=== PATIENT | female | born 1985 | race Caucasian/White ===

== ENCOUNTER → 2019-11-10 15:14 | Outpatient (CLI) | payer BC, SELFPAY ==
--- NOTE | ~2019-11-10 | CT_ITS ---
EXAMINATION: CT abdomen wo con DATE: 11/10/2019 15:32 INDICATION: Bilateral flank pain, history of kidney stones TECHNIQUE: Computed tomography (CT) of the abdomen was performed without intravenous contrast. The do se-length product (DLP) was 366.36 mGy-cm. Automated exposure control and iterative reconstruction te chnique were employed. COMPARISON: None FINDINGS: The lung bases are clear. The heart size is normal. The gallbladder is surgically absent. T he liver, spleen, pancreas, and adrenal glands are normal. Nonobstructing stones of the left kidney m easure up to 6 mm. There is a 2 mm nonobstructing stone of the right kidney lower pole. No stones are identified in the ureters. There is no hydronephrosis or hydroureter. No pathologically enlarged abd ominal nodes are identified. There is no free intraperitoneal gas or evidence of bowel obstruction. IMPRESSION: 1. Nonobstructing bilateral nephrolithiasis. Reviewed, dictated and finalized at location A.
== END ==
PROVIDERS: PCP Nurse Practitioner Family; Visit Provider Nurse Practitioner Family
DX: N20.0 Calculus of kidney (principal)
CPT/HCPCS: 74150

== ENCOUNTER → 2019-11-10 15:17 | Outpatient (CLI) | payer BC, SELFPAY ==
--- NOTE | ~2019-11-10 | US_ITS ---
EXAMINATION: US transvaginal EXAM DATE: 11/10/2019 15:53 INDICATION: Bilateral adnexal pain. Hysterectomy. TECHNIQUE: Pelvic transvaginal sonogram was performed. There are multiple grayscale and Doppler imag es available for interpretation. There is no prior study for comparison. FINDINGS: The vaginal cuff is unremarkable. There is no free pelvic fluid. Right adnexa: The ovary measures 1.4 x 1.3 x 1.9 cm and is morphologically normal. Ovarian vascular f low confirmed. Left adnexa: The ovary measures 2.4 x 1.7 x 1.8 cm and is morphologically normal. Ovarian vascular fl ow confirmed. IMPRESSION: 1. Unremarkable pelvic ultrasound exam. Reviewed, dictated and finalized at location B.
== END ==
PROVIDERS: PCP Nurse Practitioner Family; Visit Provider Nurse Practitioner
DX: R10.2 Pelvic and perineal pain (principal); Z90.710 Acquired absence of both cervix and uterus
CPT/HCPCS: 76830

== ENCOUNTER 2020-04-26 10:18 | Outpatient (CLI) | payer BC, SELFPAY ==
--- NOTE | ~2020-04-26 | MR_ITS ---
EXAMINATION: MR brain/brain stem wo con DATE: 04/26/2020 11:03 INDICATION: Headache TECHNIQUE: Magnetic resonance imaging (MRI) of the brain and brainstem was performed without intraven ous contrast. Sequences included sagittal and axial T1-weighted SE, axial diffusion-weighted FS SE, a xial T2*-weighted GRE, axial T2-weighted FLAIR, and axial T2-weighted FSE. Apparent diffusion coeffic ient (ADC) maps were created. COMPARISON: Head CT dated 07/24/2009 FINDINGS: There are no areas of restricted diffusion to suggest acute infarction. No intracranial hemorrhage or abnormal intracranial mass lesion. There are no intraparenchymal signal abnormalities seen on the ot her pulse sequences. The ventricles are symmetric and normal in size. There are no abnormal extra-axi al fluid collections. Flow voids are seen in the cerebral arteries on the T2-weighted sequences consi stent with their expected patency. Mild mucosal thickening the bilateral ethmoid and maxillary sinuse s. Visualized orbits and soft tissues are unremarkable. IMPRESSION: 1. Normal brain. No acute intracranial process. Reviewed, dictated and finalized at location A.
== END 2020-04-26 10:19 | disposition home or self-care (01) ==
PROVIDERS: PCP Nurse Practitioner Family; Visit Provider Psychiatry & Neurology Neurology
DX: R51.9 Headache, unspecified (principal)
CPT/HCPCS: 70551

== ENCOUNTER → 2021-01-11 03:13 | Outpatient (CLI) | payer BC, SELFPAY ==
[2021-01-11 20:27] LABS: SARS-CoV-2 RNA PCR Negative
== END ==
PROVIDERS: PCP Nurse Practitioner Family; Visit Provider Obstetrics & Gynecology
DX: Z01.812 Encounter for preprocedural laboratory examination (principal); Z20.822 Contact with and (suspected) exposure to COVID-19
CPT/HCPCS: C9803; U0003; U0005

== ENCOUNTER 2021-01-11 08:22 | Outpatient (CLI) | payer BC, SELFPAY | END 2021-01-11 08:23 | disposition home or self-care (01) | LOC: ANHSURGERY 08:25 | PROVIDERS: PCP Nurse Practitioner Family; Visit Provider Obstetrics & Gynecology | DX: Z01.812 Encounter for preprocedural laboratory examination (principal); N83.209 Unspecified ovarian cyst, unspecified side | CPT/HCPCS: 36415; 86850; 86900; 86901 ==

== ENCOUNTER 2021-01-14 03:17 | Day surgery (SDC) | payer BC, SELFPAY ==
[2021-01-04 14:52] VITALS: BMI 31.9
--- NOTE | 2021-01-04 14:59 | PC.NURSE ---
Report to the Outpatient Waiting Room, entrance under the green pavilion located off [facility], at time __1015_ on date 01-14-21. OR Time: ___121_. - You and your visitor will be asked a series of questions to screen for COVID 19 for your protection. - A mask is required within the hospital. - Only one visitor is allowed at this time. Patient visitors will be guided where to wait when not with patient. Preoperative COVID Testing Requirements: No COVID Test needed if: (proof is required; if not received patient will have Rapid Test prior to entry) Covid test 01-11-21 at 835am. - Patient has received COVID Vaccine at least 14 days prior to procedure date or - Patient has positive COVID test result within last 90 days of surgery date. COVID Test needed if above criteria is not met If not COVID vaccinated a COVID test must be conducted within 72 hours of surgery and patient is asked to isolate self from time of testing until procedure. You will go to the [employer] [facility] for your COVID testing. The [employer] [facility] is located at the corner of [address] [facility]. You will only be called if COVID results are positive and your surgeon may reschedule your elective surgery date. Patients may have clear liquids (water, carbonated beverages, clear teas, apple juice) until 3 hours prior to surgery with a maximum of 20 ounces. - No food from midnight until time of surgery - Infants may have breast milk until 4 hours before surgery, infant formula 6 hours prior to surgery. - Children will be allowed to drink immediately following surgery. If applicable, please bring a bottle or sippy cup to assist with drinking. Juice, water, soda, and popsicles are readily available. For infants on formula, please bring formula the day of surgery. Pacifiers are allowed. Take the following medications with a SIP of water the morning of surgery: Medications to discontinue per physician Date to take last dose Please no make-up, nail korean, hairspray, perfume, deodorant, or body powder the day of surgery. No jewelry (including any body piercings) or valuables the day of surgery, leave them at home. Please take a shower or bath the night before, or the morning of, surgery with an antibacterial soap. Wear comfortable, loose fitting clothing. Children are encouraged to wear pajamas. - Jewelry must be removed prior to entering the operating room. Rings and piercings that are not removed may be cut off. - The hospital will not accept responsibility for valuables. - Please leave all valuables, including medications, at home the day of surgery. If you are going home after surgery, a licensed chuck wagon driver must drive you home. - NO public transportation without another adult. - We recommend that an adult stay with you for 24 hours following discharge. - We also recommend that you do not drive, make important decision, drink alcoholic beverages, or take any drugs that were not prescribed by your health care provider for at least 24 hours after your discharge time. For Pediatric surgeries, we recommend two adults accompany the child home (only one inside the building at this time). Follow any additional instructions given to you from your surgeon. Telephone instructions given to ___Patient__and asked if any additional questions and then verbalized understanding. Patient advised to call surgeon office or pre surgery nurse liaison [phone] if any additional questions.
--- NOTE | 2021-01-11 13:00 | PM.IMHP ---
H&P: HPI History of Present Illness Date/Time: 01/11/21 13:00 This is a 35-year-old female 5 para 4 status post ablation followed by hysterectomy who is admitted for laparoscopy and left cystectomy with possible left salpingo-oophorectomy. This patient has had pain and discomfort and dyspareunia. Recent ultrasound showed the uterus to be absent both ovaries appeared within normal limits her pain has been life changing and she thus will undergo laparoscopy. Left ovarian cyst was seen and cystectomy was discussed as well as possible left salpingo-oophorectomy. Risks and benefits reviewed including but not exclusive of , aspiration, bleeding, transfusion, perforation injury to bowel, bladder, ureters, or other internal organs with need for open laparotomy. She received the A[employer] handout entitled laparoscopy. She had all questions answered. She asked to proceed Chief Complaint: Pelvic pain and left ovarian cyst Review of Systems Review of Systems: All systems reviewed & are unremarkable except as noted in HPI and below PMFSH Social History Social History Smoking status: Never smoker Alcohol intake: current Spiritual care concerns: No Meds Home Medications and Allergies Home Medications Medication Instructions Recorded Confirmed Type No Home Medications 01/04/21 01/04/21 History Allergies Allergy/AdvReac Type Severity Reaction Status Date / Time No Known Allergies Allergy Unverified 01/04/21 14:52 Exam Const: General: no acute distress Eyes: General: appearance normal, both eyes and all related structures Neck: Neck: supple and no JVD Thyroid: thyroid normal Resp: Effort & Inspection: normal respiratory effort Auscultation: clear to auscultation bilaterally Cardio: Rate: regular rate Rhythm: regular rhythm GI: Inspection: non-distended GI Palp: Yes Soft to palpation, No Tenderness to palpation present (GI) and No Guarding due to palpation present (GI) Auscultation: normal bowel sounds : External Female Exam: normal external appearance Speculum Exam - Vagina: normal appearance of the vagina Speculum Exam - Cervix: normal appearance of the cervix Bimanual exam- vagina & uterus: enlarged Bimanual Exam- Adnexa, other: tender Skin: General skin exam: no rashes or lesions noted Extrem: General: normal to inspection and no edema Psych: Mental Status: mental status grossly normal Affect: normal affect Assessment and Plan Additional Plan Impression: Left ovarian cyst and pelvic pain Plan: Laparoscopic left ovarian cystectomy
[2021-01-14] VITALS (13 sets, daily range): BP systolic 86–125; BP diastolic 48–87; PULSE 55–90; RESP 10–19; TEMP 36.1–36.4; O2SAT 91–100
--- NOTE | 2021-01-14 07:11 | WPDHPUPDATE1 ---
History and Physical Update Update Date/Time: 01/14/21 07:11 History and Physical has been reviewed, including an updated exam of the patient. There are NO changes in the patient's condition. Risks, benefits, and alternatives have been discussed and questions answered. Patient agrees to proceed with procedure.
--- NOTE | 2021-01-14 10:01 | P.PNAN_ITS ---
Anes - Initial Pre Proc Eval Procedure: Operation Date: 01/14/21 11:30 Proposed Procedures p Laparoscopy with Left Ovarian Cystectomy - Daniel Julian MD Date/Time: 01/14/21 10:01 Surgeon: Daniel Julian MD Pre Op Diagnosis: Lt Ovarian Cyst, Pelvic Pain Patient Data Age: 35 Gender: F Height: 1.6 m Weight: 81.8 kg Allergies Allergy/AdvReac Type Severity Reaction Status Date / Time No Known Allergies Allergy Unverified 01/04/21 14:52 Home Medications Medication Instructions Recorded Confirmed Type hydrocodone-acetaminophen 1 tablet PO Q4H PRN #30 tablet 01/14/21 Rx Patient hx anesthesia problems: none Family hx anesthesia problems: none Results Review: All pre-operative results and documents have been reviewed as part of the pre-operative evaluation. [facility] Past Medical History Medical History (Updated 01/14/21 @ 10:02 by Terence Persaud MD) Anxiety Depression Obesity Ovarian cyst Social History Social History Smoking status: Never smoker Alcohol intake: current Living arrangements: with family Spiritual care concerns: No Anes - Eval Final PreProcedure Day of Procedure 01/14/21 10:01 Patient weight: obese Heart: regular rate and rhythm Lungs: clear to auscultation and normal air movement Airway: Mallampati scale class II Neurological: alert and oriented Last oral intake: >/= 8 hours ASA classification: II Emergent: no Anesthetic plan: proceed Anesthesia type and monitoring: general ETT Results Review: All pre-operative results and documents have been reviewed as part of the pre-operative evaluation. Informed Consent: The patient's anesthetic plan and its attendant risks and b enefits were discussed with the patient/family/POA. Questions were solicited and answers provided to the satisfaction of the patient/family/POA.
[2021-01-14] MEDS: ACETAMINOPHEN 500 MG TABLET 1000 MG PO (10:04)
[2021-01-14] MEDS: LACTATED RINGERS 1,000 ML 30 ML IV CONT ×2 (10:10→12:58)
[2021-01-14] MEDS: KETOROLAC 15 MG/ML VIAL (*BKC) IV PUSH ×2 (11:23→14:05)
[2021-01-14] MEDS: SCOPOLAMINE 1.5 MG PATCH TRANSDERM (12:01)
--- NOTE | 2021-01-14 12:51 | W.PM.PROC2 ---
Procedure Note - Detailed Date of Procedure 01/14/21 Pre-op Diagnosis Lt Ovarian Cyst, Pelvic Pain Post-op Diagnosis same Procedure Performed Laparoscopy with left salpingo-oophorectomy lysis of adhesions Surgeon Daniel Julian MD Anesthesia general Indications This is a 35-year-old status post hysterectomy with complex left ovarian cyst pelvic pain Findings Absent uterus. Normal-appearing right ovary. The tubo-ovarian complex on the left with adhesions to the vaginal Description of Procedure The patient is prepped draped normal sterile fashion placed in the dorsal lithotomy position. Under excellent general trach anesthesia weighted speculum placed posterior fornix vagina. Sponge stick was placed in the vagina and the bladder drained of clear urine. The weighted speculum was removed and gloves were changed. An infraumbilical incision made the Veress needle passed the abdomen. Abdomen filled with CO2 gas to 15mm Hg. 5mm trocar advanced under direct visualization assuring patient placed in Trendelenburg and a suprapubic incision. The 5mm trocar advanced under direct visualization assuring injury. A left lower quadrant incision made and the 10mm trocar advanced under direct visualization assuring injury. Multiple adhesions were seen at the vaginal cuff and surrounding this left tubo-ovarian complex. It benign appearance but was torsed a regular. Using the suprapubic port for grasping and the left lower quadrant incision for incising the adhesions were sharply dissected using the LigaSure from vaginal cuff these were also removed surrounding the tubo-ovarian complex. At that point the infundibulopelvic structure was skeletonized. This was then clamped, burned, cut. Tube and ovary complex were placed in Endo-Catch and brought the left lower quadrant incision. Hemostasis was assured irrigation undertaken. No other abnormalities were seen. The lower site. The gas removed from abdomen the upper sites. Incisions closed with 4 Monocryl and glue. The instruments removed from the vagina and the patient went recovery satisfactory condition. All sponge, needle, instrument counts were correct. There were no immediate complications Estimated Blood Loss 5 Drains No Packing No Pathology yes Complications No immediate complications Condition stable Disposition PACU
[2021-01-14] MEDS: fentaNYL CITRATE INJ (*CRX) 100 MCG/2 ML VIAL 25 MCG IV PUSH ×4 (13:04→13:18)
[2021-01-14] MEDS: HYDROmorphone HCL INJ (*CRX) 1 MG/ML SYR IV PUSH ×3 (13:30→14:04)
--- NOTE | 2021-01-14 14:12 | SUR.PHASEI ---
1355: Dr. Julian notified of patient's pain level and the interventions done thus far. He suggested giving another 15mg Toradol to help with pain control.
[2021-01-14] MEDS: ONDANSETRON INJ 4 MG/2 ML VIAL IV PUSH (14:58)
== END 2021-01-14 16:30 | disposition home or self-care (01) ==
PROVIDERS: PCP Nurse Practitioner Family; Visit Provider Obstetrics & Gynecology
PROC: (CPT 49320; principal; 2021-01-14 11:30)
DX: N83.02 Follicular cyst of left ovary (principal); N70.11 Chronic salpingitis; R10.2 Pelvic and perineal pain; N73.6 Female pelvic peritoneal adhesions (postinfective); E66.9 Obesity, unspecified; Z68.32 Body mass index [BMI] 32.0-32.9, adult
CPT/HCPCS: 58661; 88305; A9270; J1100; J1170; J1885; J2250; J2270; J2405; J2704; J3010; J7030; J7120

== ENCOUNTER 2022-10-30 06:40 | Emergency (ER) | payer OTHER, BC, SELFPAY ==
[2022-10-30 06:44] VITALS: BP 130/90; PULSE 75; RESP 15; TEMP 36.8; O2SAT 100
--- NOTE | 2022-10-30 06:48 | PC.NURSE ---
pt. could not keep eye open for visual acuity.
--- NOTE | 2022-10-30 07:38 | ED.EYEPROB ---
HPI - Eye Problem General Chief complaint: Eye Problems Stated complaint: scratched eye Time Seen by Provider: 10/30/22 06:55 History of Present Illness HPI Narrative: 37-year-old female presented ED for evaluation of right eye foreign body sensation. Patient woke up this morning and was having some eye irritation. Patient attempted to go through her day but the symptoms kept worsening. Patient was having difficulty opening her eyes. Patient did just have her eyelashes done yesterday but does not have any pain after the procedure. Related Data Allergies Allergy/AdvReac Type Severity Reaction Status Date / Time No Known Allergies Allergy Unverified 01/14/21 11:24 Review of Systems Review of Systems: All systems reviewed & are unremarkable except as noted in HPI and below PMFSH Past Medical History Medical History (Updated 10/30/22 @ 07:41 by Minesh Glez MD) Anxiety Depression Obesity Ovarian cyst Social History Social History Smoking status: Never smoker Alcohol intake: current Living arrangements: with family Spiritual care concerns: No Exam Narrative: APPEARANCE: Well appearing, no pain, no distress, well-nourished. HEAD: normocephalic, atraumatic. EYES: PERRLA/EOMI, fluorescein uptake in right eye lower part of the cornea not overlying the pupil. Normal eye pressures by Aaron-Pen (15, 15) NOSE: Normal no drainage NECK: Supple. No adenopathy, no masses. RESPIRATORY: Airway patent, respirations nonlabored. Clear to auscultation bilaterally, no rales, rhonchi, wheezing. CARDIOVASCULAR: Regular rate and rhythm without murmurs rubs or gallops. ABDOMINAL: Soft, nontender, nondistended, normal bowel sounds MUSCULOSKELETAL: Moves all extremities. Strength/ROM intact, No edema, No calf tenderness. NEURO: Alert. Cranial nerves II through XII intact. Grossly intact SKIN: Warm, dry. Normal Color Course Course Emergency Course: 37-year-old female presented the ED for evaluation of foreign body sensation. Patient does appear to have a corneal abrasion of the right eye. Symptoms were improved with tetracaine drops. Patient was treated with erythromycin ointment in the ED and discharged home with erythromycin ointment and encouraged to follow-up with [facility]. Patient does not wear contacts. Vital Signs Vital signs: Vital Signs Temperature 98.2 F 10/30/22 06:44 Pulse Rate 75 10/30/22 06:44 Respiratory Rate 15 10/30/22 06:44 Blood Pressure 130/90 10/30/22 06:44 Pulse Oximetry 100 10/30/22 06:44 Oxygen Delivery Room Air 10/30/22 06:44 Temperature 98.3 F 10/30/22 07:57 Pulse Rate 88 10/30/22 07:57 Respiratory Rate 18 10/30/22 07:57 Blood Pressure 120/88 10/30/22 07:57 Pulse Oximetry 100 10/30/22 07:57 Oxygen Delivery Room Air 10/30/22 06:44 MDM - Eye Problem Differential Diagnosis Differential diagnosis: Likely corneal abrasion, conjunctivitis, acute iritis, hyphema and corneal ulcer Discharge Plan Discharge Clinical Impression: Corneal abrasion Patient Disposition: Home, Self-Care Condition: Stable Instructions: Antibiotic Form, Corneal Abrasion (DC) Additional Instructions: Erythromycin ointment as directed. Have close follow-up with [facility]. If you have any worsening symptoms then please call or return to the emergency department. Prescriptions: New erythromycin 5 mg/gram (0.5 %) ointment 1 applic RIGHT EYE Q8H Qty: 3.5 0RF Discontinued hydrocodone-acetaminophen 5-325 mg tablet 1 tablet PO Q4H PRN (Reason: pain) Qty: 30 0RF Follow-up/Referrals: [facility] [place] [Outside] Neva,BARR[place] SmithP-BC [Primary Care Provider] -
[2022-10-30] MEDS: ERYTHROMYCIN OPHTH OINTMENT 1 GM TUBE 1 APPLIC RIGHT EYE (07:50)
[2022-10-30 07:57] VITALS: BP 120/88; PULSE 88; RESP 18; TEMP 36.8; O2SAT 100
== END 2022-10-30 08:16 | disposition home or self-care (01) ==
LOC: ANHED 07:45
PROVIDERS: Emergency Provider Emergency Medicine; PCP Nurse Practitioner Family
DX: S05.01XA Injury of conjunctiva and corneal abrasion without foreign body, right eye, initial encounter (principal); X58.XXXA Exposure to other specified factors, initial encounter
CPT/HCPCS: 99283; A9270

== ENCOUNTER 2023-10-18 15:34 | Outpatient (CLI) | payer OTHER, SELFPAY ==
--- NOTE | ~2023-10-18 | MR_ITS ---
MRI of the brain Clinical History: Benign neoplasm of brain Technique: Axial and sagittal T1-weighted images were acquired. These were followed by axial T2-weigh halley, diffusion weighted, gradient, and FLAIR images. Following intravenous administration of 19 cc Mu ltiHance gadolinium, T1-weighted fat-sat imaging was performed in the axial, coronal, and sagittal pl anes. COMPARISON: 04/26/2020 Findings: No abnormal signal seen in the brain parenchyma. No acute infarct, intracranial hemorrhage, or mass lesion. Ventricles and some arachnoid spaces are unremarkable. Orbits are unremarkable. Paranasal sinuses and mastoid air cells are clear. Major intracranial flow voids are intact. Sagittal midline structures are intact. No abnormal postcontrast enhancement identified. IMPRESSION: Normal exam. Reviewed, dictated and finalized at [facility]. IMPRESSION: Normal exam.
== END 2023-10-18 15:35 | disposition home or self-care (01) ==
PROVIDERS: PCP Nurse Practitioner; Visit Provider Nurse Practitioner
DX: D33.2 Benign neoplasm of brain, unspecified (principal)
CPT/HCPCS: 70553; A9577

== ENCOUNTER 2024-07-24 15:36 | Outpatient (CLI) | payer OTHER, SELFPAY ==
--- NOTE | ~2024-07-24 | CT_ITS ---
History: Headache PROCEDURE: CT head without contrast. COMPARISON: Reference is made to an MRI examination of the brain performed 10/18/2023 and dating back to 04/26/2020 TECHNIQUE: Axial imaging of the head performed from the skull base to the vertex without IV contrast. Sagittal a nd coronal reformations obtained. DLP: 681 mGy-cm FINDINGS: The ventricles are normal in size, shape and position. There is no mass, mass effect or midline shift. There is no abnormal extra-axial fluid collection or intracranial hemorrhage. Visualized paranasal sinuses are clear. The mastoid air cells are well aerated. No acute displaced fractures within the overlying cranium. Impression: No acute intracranial hemorrhage or suspicious mass effect. Reviewed, dictated and finalized at location A. Impression: No acute intracranial hemorrhage or suspicious mass effect.
--- OUTSIDE RECORDS SUMMARY | 2024-07-24 15:40 | XMS_ITS | Encounter Summary ---
Author Organization [facility] Address [address] [place] [address] Care Team Providers Care Right Of Way Supervisor Name Role Phone Unavailable Primary Care Provider Unavailabl e Encounter Details Date Type Department Care Team (Late st Contact Info) Description 10/17/2018 Lab Requisition [facility] [address] [place] [address] Lesly Harvey MD [address] [facility] [address] DEPT [place] [address] Social History Tobacco Use Types Packs/Day Years Used Date Smoking Tobacco: Former Cigarettes 0.3 1 Smokeless Tobacco: Never Comments:quit at age 19 Comments No Sex and Gender Information Value Date Recorded Sex Assigned at Not on file Legal Sex Female 2:54 PM CDT Gender Identity Not on file Sexual Orientation Not on file documented as of this encounter Plan of Treatment Not on file documented as of this encounter Procedures Procedure Name Priority Date/Time Associated Diagnosis Comments DERMATOPATH TECHNICAL REPORT Routine 10/17/2018 12:00 AM CDT documented in this encounter Results * DERMATOPATH TECHNICAL REPORT (10/17/2018 12:00 AM CDT) Case Report Dermatopathology Report Case: [id number] Authorizing Provider: Lesly Harvey MD Collected: 10/17/2018 12:00 AM Ordering Location: [facility] Received: 10/17/2018 12:33 PM Pathologist: Lisa Zelaya MD Specimen: Skin, left lower abdomen 3:39 PM CDT DERMATOPATHOLOGY LABORATORY Clinical History R/O nevus, irritated. 3:39 PM CDT DERMATOPATHOLOGY LABORATORY Gross Description Specimen A: Received is one formalin filled container labeled with the patient's name and designated left lower abdomen. The specimen consists of a shave measuring [id number], bisected. Jar 0. [facility] Dermatopathology [facility] performed the technical component only. 3:39 PM CDT DERMATOPATHOLOGY LABORATORY Embedded Images 3:39 PM CDT DERMATOPATHOLOGY LABORATORY DISCLAIMER An external and internal positive and negative controls are appropriate for the histochemical, immunohistochemical and immunofluorescence stain(s) in this case (if any), except where stated explicitly. The performance characteristics of the stain(s) cited in this report were developed and its performance characteristic determined by the Dermatopathology Laboratory at [facility], directed by Dr. Zach Vargas. These tests need not be, and therefore are not, approved by the [place] Food and Drug Administration. The tests are used for clinical purposes. 3:39 PM CDT DERMATOPATHOLOGY LABORATORY at 1539 CDT Pathology/Cytolog y TISSUE SPECIMEN FROM SKIN / Unknown 10/17/2018 10/17/2018 12:33 PM CDT Lesly Harvey MD LAB - PATHOLOGY/CYTOLOGY OR DERABLES Final Result DERMATOPATHOLOGY LABORATORY [facility] - Department of Dermatology [address] [place] [address] 5th Floor Lab [address] [phone] documented in this encounter Visit Diagnoses Not on filedocumented in this encounter
--- OUTSIDE RECORDS SUMMARY | 2024-07-24 15:40 | XMS_ITS | Encounter Summary ---
Author Organization [facility] Address [address] [place] [address] Care Team Providers Care Pizza Delivery Driver Name Role Phone Jacqueline Mckeon NP Primary Care Provider [phone] Encounter Details Date Type Department Care Team (Latest Contact Info) Description 07/24/2024 Travel Social History Tobacco Use Types Packs/Day Years Used Date Smoking Tobacco: Never Passive Smoke Exposure: Never Smokeless Tobacco: Never PHQ-2 Answer Date Recorded Patient Health Questionnaire-2 Score 0 07/24/2024 Comments No Sex and Gender Information Value Date Recorded Sex Assigned at Female 09/14/2023 7:00 AM CDT Legal Sex Female 3:18 PM CDT Gender Identity Female 09/14/2023 7:00 AM CDT Sexual Orientation Not on file documented as of this encounter Functional Status * Over the past 2 weeks, how often have you been bothered by any of the following problems? Question Answer Date of Assessment Author Status Little interest or pleasure in doing things Not at all 07/24/2024 12:47 PM CDT Debbie Elaine MA Active Feeling down, depressed, or hopeless Not at all 07/24/2024 12:47 PM CDT Debbie Elaine MA Activ e Patient Health Questionnaire-2 Score 0 07/24/2024 12:47 PM CDT Debbie Elaine MA Active * Question Answer Date of Assessment Author Status Trouble falling or staying asleep, or sleeping too much Nearly every day 07/24/2024 12:47 PM CDT Debbie Elaine MA Active Feeling tired or having little energy Several days 07/24/2024 12:47 PM CDT Debbie Elaine MA Active Poor appetite or overeating Several days 07/24/2024 12:47 PM CDT Debbie Elaine MA Active Feeling bad about yourself - or that you are a failure or have let yourself or your family down Nearly every day 07/24/2024 12:47 PM CDT Debbie Elaine MA Active Trouble concentrating on things, such as reading the newspaper or watching television Nearly every day 07/24/2024 12:47 PM CDT Debbie Elaine MA Active Moving or speaking so slowly that other people could have noticed? Or the opposite - being so fidgety or restless that you have been moving around a lot more than usual. Several days 07/24/2024 12:47 PM CDT Debbie Elaine MA Active Thoughts that you would be better off or hurting yourself in some way Not at all 07/24/2024 12:47 PM CDT Debbie Elaine MA Active Patient Health Questionnaire-9 Score 12 07/24/2024 12:47 PM CDT Debbie Elaine MA Active * If you checked off any problems on this questionnaire so far, Question Answer Date of Assessment Author Status How difficult have these problems made it for you to do your work, take care of things at home, or get along with other people? Somewhat difficult 07/24/2024 12:47 PM CDT Debbie Elaine MA Active documented as of this encounter Plan of Treatment Upcoming Encounters Date Type Department Care Team (Late st Contact Info) Description 07/30/2024 4:00 PM CDT Office Visit [facility] - [place] [address] [place] [address] Jacqueline Mckeon NP [address] [facility] [address] [place] [address] documented as of this encounter Visit Diagnoses Not on filedocumented in this encounter Additional Health Concerns Assessment Noted Time PHQ-9 Depression Total Score: 12 025 12:47 PM CDT documented as of this encounter Care Teams Pizza Delivery Driver Relationship Specialty Start Date End Date Jacqueline Mckeon NP [address] [facility] [address] [place] [address] PCP - General NURSE PRACTITIONER 09/13/23 documented as of this encounter
--- OUTSIDE RECORDS SUMMARY | 2024-07-24 15:40 | XMS_ITS | Encounter Summary ---
Author Organization [facility] Address [address] [place] [address] Care Team Providers Care Secretary Office Clerk Name Role Phone Jacqueline Mckeon CAPTURE MANAGER Primary Care Provider [phone] Reason for Referral * Medication Prior Authorization - Pending Review Specialty Diagnoses / Procedures Referred By Contac t Referred To Contact Diagnoses Migraine without aura and without status migrainosus, not intractable Jacqueline Mckeon NP [address] [facility] [address] [place] [id number] Phone: tel: fax: Referral ID Status Reason Start Date Expiration Date V isits Requested Visits Authorized [id number] Pending Review 1 1 * Imaging (Emergency) - Pending Review Specialty Diagnoses / Procedures Referred By Contac t Referred To Contact RADIOLOGY Diagnoses Other complicated headache syndrome Procedures CT HEAD WO CON Jacqueline Mckeon NP [address] [facility] [address] [place] [address] Phone: tel: fax: Referral ID Status Reason Start Date Expiration Date V isits Requested Visits Authorized [id number] Pending Review 07/24/2024 07/25/2025 1 1 Reason for Visit * Reason Comments Nausea Vomiting Headache Pt states she has ruiz d this migraine for 2 weeks. On going for 12 years. Encounter Details Date Type Department Care Team (Late st Contact Info) Description 07/24/2024 1:00 PM CDT Office Visit [facility] - [place] [address] [place] [address] Linda Jacqueline Nelli, CAPTURE MANAGER [address] [place] [address] Nausea; Vomiting; Headache (Pt states she has had this migraine for 2 weeks. /On going for 12 years. /) Social History Tobacco Use Types Packs/Day Years Used Date Smoking Tobacco: Never Passive Smoke Exposure: Never Smokeless Tobacco: Never Tobacco Cessation:Counseling Given: No PHQ-2 Answer Date Recorded Patient Health Questionnaire-2 Score 0 07/24/2024 Comments No Sex and Gender Information Value Date Recorded Sex Assigned at Female 09/14/2023 7:00 AM CDT Legal Sex Female 3:18 PM CDT Gender Identity Female 09/14/2023 7:00 AM CDT Sexual Orientation Not on file documented as of this encounter Last Filed Vital Signs Vital Sign Reading Time Taken Comments Blood Pressure 124/86 07/24/2024 12:47 PM CDT Pulse 63 07/24/2024 12:47 PM CDT Temperature 36.8 C (98.3 F) 07/24/2024 12:47 PM CDT Respiratory Rate 16 07/24/2024 12:47 PM CDT Oxygen Saturation - - Inhaled Oxygen Concentration - - Weight 83 kg (183 lb) 07/24/2024 12:47 PM CDT Height 160 cm (5' 3) 07/24/2024 12:47 PM CDT Body Mass Index 32.42 07/24/2024 12:47 PM CDT documented in this encounter Functional Status * Over the [...] MA Active documented as of this encounter Patient Instructions * Patient Instructions* Jacqueline Mckeon NP - 07/24/2024 1:[address] CD[address] head CT Qulipta ordered to take daily Depo and toradol today Recommend eye exam Tonight take sumatriptan May make you feel groggy/loopy Tomorrow may use sumatriptan if needed or fioricet which has caffeine in it Follow up on labs documented in this encounter Plan of Treatment Upcoming Encounters Date Type Department Care Team (Late st Contact Info) Description 07/30/2024 4:00 PM CDT Office Visit [facility] - [place] [address] [place] [address] Jacqueline Mckeon NP [address] [place] [address] Scheduled Orders Name Type Priority Associated Diagnoses Orde r Schedule SED RATE, ERYTHROCYTE (ESR) Lab Routine Migraine without aura and without status migrainosus, not intractable Expected: 07/24/2024, Expires: 07/24/2025 C-REACTIVE PROTEIN Lab Routine Migraine without aura and without status migrainosus, not intractable Expected: 07/24/2024, Expires: 07/24/2025 COMPREHENSIVE METABOLIC PANEL Lab Routine Migraine without aura and without status migrainosus, not intractable Expected: 07/24/2024, Expires: 07/24/2025 CBC W/DIFF AUTOMATED Lab Routine Other complicated headache syndrome Expected: 07/24/2024, Expires: 07/24/[address]25 CT HEAD WO CON CT STAT Other complicated headache syndrome Expected: 07/24/2024, Expires: 07/24/2025 documented as of this encounter Visit Diagnoses Diagnosis Migraine without aura and without status migrainosus, not intractable- Primary Migraine without aura, without mention of intractable migraine without mention of status migrainosus Other complicated headache syndrome documented in this encounter Administered Medications Inactive Administered Medications - up to 3 most recent administrations Medication Order MAR Action Action Date Dose Rate Site ketorolac (TORADOL) injection 60 mg 60 mg, Intramuscular, Once, 1 dose, On Marcella 07/24/24 at 1330Indications:Other complicated headache syndrome Given 07/24/2024 1:21 PM CDT 60 mg Right Dorsal Gluteal methylPREDNISolone acetate (DEPO-Medrol) injection 40 mg 40 mg, Intramuscular, Once, 1 dose, On Marcella 07/24/24 at 1330, Shake Well IM Administration: Avoid injection into deltoid muscle due to high incidence of subcutaneous atrophy.Indications:Other complicated headache syndrome Given 07/24/2024 1:23 PM CDT 40 mg Left Dorsal Gluteal documented in this encounter Additional Health Concerns Assessment Noted Time PHQ-9 Depression Total Score: 12 025 12:47 PM CDT documented as of this encounter Care Teams Secretary Office Clerk Relationship Specialty Start Date End Date Jacqueline Mckeon, ANGELINA [address] [place] [address] PCP - General NURSE PRACTITIONER 09/13/23 documented as of this encounter
--- OUTSIDE RECORDS SUMMARY | 2024-07-24 15:40 | XMS_ITS | Clinical Summary ---
Author Organization [facility] Address [address] [facility] [place] [address] Care Team Providers Care Alining Inspector Name Role Phone Unavailable Primary Care Provider Unavailabl e Source Comments [facility] [employer],non-owned Affiliates and Associated Physician Practices is amultiple site organization consisting of ambulatory clinics and hospital sitesin [place], [place], [place] and [place]. This disclosure is being madepursuant to the Care Everywhere program and may not contain all information available regarding this patient. Last updated 17.[facility] [employer] Allergies No known active allergies Medications * Be aware that medications may not be up to date on this document. Alwaysverify current medications with the patient. benzonatate (TESSALON) 200 MG capsule Take 1 capsule by mouth 3 times daily as needed for Cough 30 capsule 04/19/2017 Active Family History Relation Name Status Comments Father Alive Mother Alive Social History Tobacco Use Types Packs/Day Years Used Date Smoking Tobacco: Former Cigarettes 0.3 1 Smokeless Tobacco: Never Comments:quit at age 19 Comments No Sex and Gender Information Value Date Recorded Sex Assigned at Not on file Legal Sex Female 2:54 PM CDT Gender Identity Not on file Sexual Orientation Not on file Last Filed Vital Signs Vital Sign Reading Time Taken Comments Blood Pressure 104/72 04/19/2017 12:49 PM CDT Pulse 77 04/19/2017 12:49 PM CDT Temperature 36.8 C (98.3 F) 04/19/2017 12:49 PM CDT Respiratory Rate 16 04/19/2017 12:49 PM CDT Oxygen Saturation 99% 04/19/2017 12:49 PM CDT Inhaled Oxygen Concentration - - Weight 81.6 kg (180 lb) 04/19/2017 12:49 PM CDT Height 162.6 cm (5' 4) 04/19/2017 12:49 PM CDT Body Mass Index 30.9 04/19/2017 12:49 PM CDT Plan of Treatment Health Maintenance Due Date Last Done Comments HIV SCREENING 2001 HEPATITIS C SCREENING 03/08/2004 DTAP/TDAP/TD VACCINES (1 - Tdap) 2005 HEPATITIS B VACCINE (1 of 3 - 19+ 3-dose series) 2005 COVID-19 VACCINE (1 - 2023-2 5 season) 2023 DEPRESSION SCREENING 02/06/2024 INFLUENZA VACCINE (Season Ended) 2024 ZOSTER VACCINE (1 of 2) 2036 HIB VACCINE Aged Out No longer eligi ble based on patient's age to complete this topic HPV VACCINE Aged Out No longer eligi ble based on patient's age to complete this topic MENINGOCOCCAL (Group B) VACC INE SHARED DECISION-MAKING Aged Out No longer eligibl e based on patient's age to complete this topic MENINGOCOCCAL GROUPS A/C/Y/W VACCINE Aged Out No longer eligible b ased on patient's age to complete this topic PNEUMOCOCCAL VACCINE Aged Out No long er eligible based on patient's age to complete this topic Insurance [facility]
--- OUTSIDE RECORDS SUMMARY | 2024-07-24 15:40 | XMS_ITS | Encounter Summary ---
Author Organization [facility] Address [address] [place] [address] Care Team Providers Care Supply Chain Consultant Name Role Phone Jacqueline Mckeon SNOW REMOVAL SUPERVISOR Primary Care Provider [phone] Encounter Details Date Type Department Care Team (Late st Contact Info) Description 07/23/2024 MyChart Message Enc [facility] - [place] [address] [place] [address] Jacqueline Mckeon, SNOW REMOVAL SUPERVISOR [address] [place] [address] Migraines Social History Tobacco Use Types Packs/Day Years [...] on file documented as of this encounter Progress Notes * Melvina Hwang MA - 07/23/2024 5:09 PM CDT Patient scheduled documented in this encounter Plan of Treatment Upcoming Encounters Date Type Department Care Team (Late st Contact Info) Description 07/30/2024 4:00 PM CDT Office Visit [facility] - [place] [address] [place] [address] Jacqueline Mckeon NP [address] [facility] [address] [place] [address] documented as of this encounter Visit Diagnoses Not on filedocumented in this encounter Additional Health Concerns Assessment Noted Time PHQ-9 Depression Total Score: 19 024 1:14 PM CDT documented as of this encounter Care Teams Supply Chain Consultant Relationship Specialty Start Date End Date Jacqueline Mckeon NP [address] [facility] [address] [place] [address] PCP - General NURSE PRACTITIONER 09/13/23 documented as of this encounter
== END 2024-07-24 15:37 | disposition home or self-care (01) ==
PROVIDERS: PCP Nurse Practitioner; Visit Provider Nurse Practitioner
DX: G44.59 Other complicated headache syndrome (principal)
CPT/HCPCS: 70450